=== PATIENT | male | born 1950 | race Caucasian/White ===

== ENCOUNTER 2020-02-04 14:02 | Emergency (ER) | payer OTHER ==
[2020-02-04 14:40] VITALS: TEMP 98.7; BMI 33.3
--- NOTE | 2020-02-04 14:47 | PDOC ---
History of Present Illness - General Chief Complaint: Difficulty seeing Stated Complaint: PROGRESSIVE VISION LOSS Time Seen by Provider: 02/04/20 14:46 - History of Present Illness Initial Comments: Pt is a 69yo M with PMH Afib on Eliquis, HTN, gastritis, hypothyroid, gout, anemia, hx of etoh abuse who presents with vision loss. Pt is a poor historian, telling different histories to myself and nurse. Pt states that he is here for loss of appetite, denies change in vision. Per Ene @ [facility], she noticed that over the past 5 days, patient has been saying he can't see, tripping over objects on the floor, misplacing objects, has poor hand-eye coordination. Nurse found a pair of glasses, and pt continues to report decreased vision. States that he had a visit with the deputy harbormaster last month. Per nurse's interview with patient, he broke his glasses and has had difficulty seeing without them and that current pair is an old prescription. Spoke with another employee at [employer], reports that pt has had difficulty seeing for at least the past two weeks. States that his medications have to be placed in his hand. 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 PMH: see above Meds: see chart Allergies: NKDA Social: reports drinking 1-2 beers/day, last drink yesterday Review of Systems CONSTITUTIONAL:denies fever, chills, generalized weakness HEENT:denies rhinorrhea, nasal congestion, sore throat CARDIOVASCULAR:denies chest pain, palpitations, lightheadedness RESPIRATORY:denies cough, shortness of breath, wheezing GASTROINTESTINAL: denies abdominal pain, nausea, vomiting, diarrhea, constipation, melena, hematochezia GENITOURINARY:denies dysuria, frequency, hematuria MUSCULOSKELETAL:denies myalgia, arthralgia HEMATOLOGIC/IMMUNOLOGIC:denies easy bleeding, easy bruising, denies bleeding from gums ENDOCRINE: denies unexplained weight gain, unexplained weight loss NEUROLOGIC:denies headache, loss of consciousness, focal weakness or paresthesias, bladder or bowel incontinence SKIN:denies rash, itching, pallor Physical Exam General: awake, alert, oriented, in no acute distress, well developed, well nourished Head: normocephalic, atraumatic Eyes: PERRL, anicteric sclera, conjunctiva clear; limited vision in right eye; vision loss in left eye ENT: hearing grossly normal, oropharynx clear without exudates, moist mucous membranes Neck: supple, normal ROM Lung: equal breath sounds b/l, CTA b/l, no crackles, wheezes; no distress, speaks full sentences Heart: RRR, normal S1, S2, no murmurs appreciated Abdomen: soft, non tender, normoactive bowel sounds, no guarding, rebound, masses Extremities: no edema, no erythema or tenderness, radial/DP/PT pulses 2+ and symmetric, no clubbing, cyanosis Neuro: Cranial nerves: Cranial nerves II through XII are intact Motor: The upper extremities are 5/5 in all muscle groups. The lower extremities are 5/5 in all muscle groups. No pronator drift. Sensation: Sensation is intact to light touch throughout. Cerebellar: unable to assess dysmetria due to vision loss, -dysdiadochokinesia Skin: warm, dry, no rashes or lesions noted, no petechiae appreciated MDM Pt is a 69yo M with PMH Afib on Eliquis, HTN, gastritis, hypothyroid, gout, anemia, hx of etoh abuse who presents with vision loss. DDx including but not limited to: cataracts, chronic vision loss, less likely GCA (no temporal TTP, chronic loss of vision) Workup: labs EKG - Atrial fibrillation, HR 78bpm, QRS 78ms, QTc 437ms, unchanged from previous (09/2019) Pt resting comfortably in bed, no complaints Will consult ophthalmology Spoke with Dr. Silva - recommended Head CT to evaluate for embolic strokes, outpatient follow up appointment tomorrow Likely discharge to [facility] with outpatient f/u with ophtho Pending head CT signed out to night team Past History - Medical History Allergies/Adverse Reactions: Allergies Allergy/AdvReac Type Severity Reaction Status Date / Time No Known Allergies Allergy Verified 02/04/20 14:39 Home Medications: Ambulatory Orders Allopurinol [Zyloprim -] 100 mg PO DAILY 09/27/19 Apixaban [Eliquis -] 5 mg PO BID 09/27/19 Ascorbic Acid [Vitamin C -] 1,000 mg PO DAILY 09/27/19 Cholecalciferol (Vitamin D3) [Vitamin D3] 50,000 unit PO MONTHLY 09/27/19 Folic Acid - 1 mg PO DAILY 09/27/19 Methimazole [Tapazole -] 10 mg PO DAILY 09/27/19 Metoprolol Succinate [Toprol XL -] 100 mg PO BID 09/27/19 Pantoprazole Sodium [Protonix] 40 mg PO DAILY 09/27/19 Thiamine Mononitrate [Vitamin B-1] 100 mg PO DAILY 09/27/19 Pantoprazole Sodium [Protonix -] 40 mg PO DAILY #0 tablet.ec 09/29/19 Cardiac Disorders: Yes (afib) COPD: No GI Disorders: Yes (Gastritis) HTN: Yes Psychiatric Problems: Yes (etoh abuse) Seizures: Yes (hypothyroid) - Psycho-Social/Smoking History Smoking History: Smoker current status UNK Have you smoked in the past 12 months: No Information on smoking cessation initiated: No - Substance Abuse Hx (Audit-C & DAST Scrn) How often the patient has a drink containing alcohol: Never Score: In Men: 4 or > Positive; In Women: 3 or > Positive: 0 Screen Result (Pos requires Nsg. Audit-10AR): Negative In the last yr the pt used illegal drug/Rx for NonMed reason: No Score: Yes response is considered Positive: 0 Screen Result (Positive result requires Nsg. DAST-10): Negative *Physical Exam - Vital Signs Last Vital Signs Temp Pulse Resp BP Pulse Ox 98.7 F 92 H 18 123/75 97 02/04/20 14:37 02/04/20 14:37 02/04/20 14:37 02/04/20 14:37 02/04/20 14:37 ED Treatment Course - LABORATORY CBC & Chemistry Diagram: 02/04/20 17:00 02/04/20 16:15 Discharge - Discharge Information Problems reviewed: Yes Clinical Impression/Diagnosis: Vision loss, bilateral Condition: Stable Disposition: HOME - Follow up/Referral Referrals: Ulises Silva MD [Staff Physician] - - Patient Discharge Instructions Patient Printed Discharge Instructions: Coping With Low Vision Additional Instructions: You came into the ER vision changes. In the ED, you were evaluated with blood work, electrocardiogram (EKG), and head CT. Your blood work indicated low platelet count. Your EKG the same as your previous one. Your head CT was normal. You do not appear to be an acute need for immediate hospitalization. You were advised to follow up with ophthalmology. You were given a number for Dr. Silva ([phone]). Call tomorrow to schedule an appointment. Come back to the ER immediately with any new or worsening concerns. Thank you for coming to the [facility] ER. We hope you feel better soon! - Post Discharge Activity
[2020-02-04 16:38] LABS: INR 1.32 (0.83-1.09); PROTHROMBIN TIME (PATIENT) 15.6 SEC (9.7-13.0)
[2020-02-04 16:40] LABS: ACTIVATED PTT 18.1 SECONDS (25.2-36.5)
[2020-02-04 17:01] LABS: ANION GAP 10 MMOL/L (8-16); CHLORIDE 114 mmol/L (98-107); CO2 23 mmol/L (21-32); CREATININE 1.1 mg/dL (0.55-1.3); GLUCOSE,RANDOM 95 mg/dL (74-106); POTASSIUM 4.2 mmol/L (3.5-5.1); SODIUM 144 mmol/L (136-145)
[2020-02-04 17:02] LABS: ALBUMIN 3.5 g/dl (3.4-5.0); ALK PHOS 104 U/L (45-117); BILIRUBIN,TOTAL 0.3 mg/dL (0.2-1); SGOT/AST 28 U/L (15-37); SGPT/ALT 20 U/L (13-61); TOT PROT 6.6 g/dl (6.4-8.2)
[2020-02-04 17:05] LABS: CALCIUM < 5.0 mg/dL (8.5-10.1)
--- NOTE | 2020-02-04 17:08 | PDOC ---
Attending Attestation - Resident Resident Name: Isela Rasheed - ED Attending Attestation I have performed the following: I have examined & evaluated the patient, The case was reviewed & discussed with the resident, I agree w/resident's findings & plan, Exceptions are as noted - HPI HPI: 02/04/20 17:08 69y M hx of afib on eliquis, htn, gastiritis hypethyroid, gout presents with vision lose. Pt is a poor historian, states he has trouble seeing. Per NH, he has had trouble seeing and misplacing things, as far as 2 weeks ago, per admin he was unable to see something held in front of him. Pt denies any acute complaints including fever/chills, neck pain, headache, cp, palpitations. - Physicial Exam PE: 02/10/20 18:01 exam: no distress card: rrr pulmL cta bl neuro: no vision on L eye, R eye vision to shadows - Medical Decision Making 02/10/20 18:01 vision loss appears subacute, will need optho fu will dw optho for further reval Discharge - Discharge Information Problems reviewed: Yes Clinical Impression/Diagnosis: Vision loss of right eye Condition: Stable Disposition: HOME - Admission No - Follow up/Referral Referrals: Ulises Silva MD [Staff Physician] - - Patient Discharge Instructions Patient Printed Discharge Instructions: Coping With Low Vision Additional Instructions: You came into the ER vision changes. In the ED, you were evaluated with blood work, electrocardiogram (EKG), and head CT. Your blood work indicated low platelet count. Your EKG the same as your previous one. Your head CT was normal. You do not appear to be an acute need for immediate hospitalization. You were advised to follow up with ophthalmology. You were given a number for Dr. Silva ([phone]). Call tomorrow to schedule an appointment. Come back to the ER immediately with any new or worsening concerns. Thank you for coming to the [facility] ER. We hope you feel better soon! - Post Discharge Activity
[2020-02-04 17:25] LABS: BASO % 0.8 % (0-2.0); EOS % 1.5 % (0-4.5); HEMATOCRIT 35.9 % (35.4-49); HEMOGLOBIN 12.1 GM/dL (11.7-16.9); MCHC 33.6 g/dl (32.0-35.9); MEAN CELL VOLUME 95.5 fl (80-96); MEAN PLT VOLUME 9.6 fl (7.5-11.1); MONO % 11.2 % (3.8-10.2); NEUT % 58.5 % (42.8-82.8); PLATELET COUNT 85 K/MM3 (134-434); RBC 3.76 M/mm3 (4.00-5.60); RDW 16.4 % (11.9-15.9); WHITE BLOOD COUNT 4.5 K/mm3 (4.0-10.0)
[2020-02-04 18:22] LABS: ERYTHROCYTE SEDIMENTATION RATE 44 mm/hr (0-20)
--- NOTE | 2020-02-04 19:15 | PDOC ---
*Physical Exam - Vital Signs Last Vital Signs Temp Pulse Resp BP Pulse Ox 98.7 F 92 H 18 123/75 97 02/04/20 14:37 02/04/20 14:37 02/04/20 14:37 02/04/20 14:37 02/04/20 14:37 ED Treatment Course - LABORATORY CBC & Chemistry Diagram: 02/04/20 17:00 02/04/20 16:15 - ADDITIONAL ORDERS Additional order review: Laboratory Results 02/04/20 02/04/20 02/04/20 17:00 16:15 16:15 PT with INR 15.60 H INR 1.32 H PTT (Actin FS) 18.1 L Sodium 144 Potassium 4.2 Chloride 114 H Carbon Dioxide 23 Anion Gap 10 BUN 19.0 H Creatinine 1.1 Est GFR (CKD-EPI)AfAm 78.41 Est GFR (CKD-EPI)NonAf 67.66 Random Glucose 95 Calcium 9.2 < 5.0 L* Total Bilirubin 0.3 AST 28 ALT 20 Alkaline Phosphatase 104 C-Reactive Protein < 0.3 Total Protein 6.6 Albumin 3.5 02/04/20 02/04/20 17:00 16:15 RBC 3.76 L Cancelled MCV 95.5 Cancelled MCHC 33.6 Cancelled RDW 16.4 H Cancelled MPV 9.6 Cancelled Neutrophils % 58.5 D Cancelled Lymphocytes % 28.0 D Cancelled Monocytes % 11.2 H D Cancelled Eosinophils % 1.5 D Cancelled Basophils % 0.8 Cancelled Medical Decision Making - Medical Decision Making 02/04/20 19:[address],if no acute intracranial pathology, d/c 02/04/20 19:42 EXAM: HEAD CT WITHOUT CONTRAST HISTORY: Vision loss COMPARISON: None. FINDINGS: No intra or extra-axial hemorrhage or collection. No evidence of acute infarct in a major vascular territory within the limitations of CT No mass lesion or midline shift. Normal morgan white matter differentiation. Mild to moderate cortical atrophy The ventricles are not enlarged and are symmetric and midline in position. The calvarium is intact Mild mucosal thickening in the maxillary sinuses. The remaining visualized paranasal sinuses and mastoid air cells are clear Discharge - Discharge Information Problems reviewed: Yes Clinical Impression/Diagnosis: Vision loss of right eye Condition: Stable Disposition: HOME - Follow up/Referral Referrals: Ulises Silva MD [Staff Physician] - - Patient Discharge Instructions Patient Printed Discharge Instructions: Coping With Low Vision Additional Instructions: You came into the ER vision changes. In the ED, you were evaluated with blood work, electrocardiogram (EKG), and head CT. Your blood work indicated low platelet count. Your EKG the same as your previous one. Your head CT was normal. You do not appear to be an acute need for immediate hospitalization. You were advised to follow up with ophthalmology. You were given a number for Dr. Silva ([phone]). Call tomorrow to schedule an appointment. Come back to the ER immediately with any new or worsening concerns. Thank you for coming to the [facility] ER. We hope you feel better soon! - Post Discharge Activity
[2020-02-04 21:05] VITALS: BP 166/94; PULSE 94
--- NOTE | 2020-02-05 11:16 | EKG ---
Test Reason : Blood Pressure : / mmHG Vent. Rate : 078 BPM Atrial Rate : 468 BPM P-R Int : 000 ms QRS Dur : 078 ms QT Int : 384 ms P-R-T Axes : 000 010 008 degrees QTc Int : 437 ms ATRIAL FIBRILLATION ABNORMAL ECG WHEN COMPARED WITH ECG OF 27-SEP-2019 16:57, T WAVE VARIATION Confirmed by LASHONDA ACUNA MD ([id number]) on 02/05/2020 11:16:23 AM Referred By: Confirmed By:LASHONDA ACUNA MD
== END 2020-02-04 21:05 | disposition home or self-care (01) ==
LOC: JER 14:02
DX: H53.133 Sudden visual loss, bilateral (principal)
CPT/HCPCS: 36415; 70450-TC; 80053; 82310; 85025; 85610; 85651; 85730; 86140; 93005; 93010; 99285-25

== ENCOUNTER 2020-02-10 11:05 | Emergency (ER) | payer OTHER ==
[2020-02-10 11:25] VITALS: BP 150/98; PULSE 89; TEMP 98.1; BMI 33.3
[2020-02-10] MEDS ORDERED: ACETAMINOPHEN 325 MG TABLET (FP) PO ONE (11:41)
[2020-02-10] MEDS ORDERED: DIPHTH,PERTUSS(ACELL),TET 0.5 ML DISP.SYRIN IM ONE ×2 (11:41→11:58)
[2020-02-10 14:35] LABS: BASO % 0.8 % (0-2.0); EOS % 1.8 % (0-4.5); HEMATOCRIT 39.6 % (35.4-49); HEMOGLOBIN 13.2 GM/dL (11.7-16.9); LYMPH % 26.1 % (8-40); MCH 32.6 pg (25.7-33.7); MCHC 33.4 g/dl (32.0-35.9); MEAN CELL VOLUME 97.5 fl (80-96); MEAN PLT VOLUME 9.8 fl (7.5-11.1); NEUT % 63.3 % (42.8-82.8); PLATELET COUNT 114 K/MM3 (134-434); RBC 4.06 M/mm3 (4.00-5.60); RDW 16.2 % (11.9-15.9); WHITE BLOOD COUNT 5.6 K/mm3 (4.0-10.0)
[2020-02-10 14:43] LABS: INR 1.32 (0.83-1.09); PROTHROMBIN TIME (PATIENT) 15.6 SEC (9.7-13.0)
[2020-02-10 14:46] LABS: ACTIVATED PTT 37.4 SECONDS (25.2-36.5)
[2020-02-10 14:52] LABS: ALBUMIN 3.9 g/dl (3.4-5.0); ALK PHOS 94 U/L (45-117); ANION GAP 13 MMOL/L (8-16); BILIRUBIN,TOTAL 0.4 mg/dL (0.2-1); BLOOD UREA NITROGEN 18.9 mg/dL (7-18); CALCIUM 9.5 mg/dL (8.5-10.1); CHLORIDE 113 mmol/L (98-107); CO2 16 mmol/L (21-32); CREATININE 0.8 mg/dL (0.55-1.3); POTASSIUM 4.4 mmol/L (3.5-5.1); SGOT/AST 27 U/L (15-37); SGPT/ALT 24 U/L (13-61); SODIUM 142 mmol/L (136-145); TOT PROT 7.4 g/dl (6.4-8.2)
[2020-02-10 14:57] LABS: GLUCOSE,RANDOM 72 mg/dL (74-106)
== END 2020-02-10 16:01 | disposition home or self-care (01) ==
LOC: JER 11:05
PROC: 3E0234Z Introduction of Serum, Toxoid and Vaccine into Muscle, Percutaneous Approach (ICD-10-PCS; principal; 2020-02-10)
DX: S41.112A Laceration without foreign body of left upper arm, initial encounter (principal); S80.11XA Contusion of right lower leg, initial encounter; S00.83XA Contusion of other part of head, initial encounter; F10.229 Alcohol dependence with intoxication, unspecified
CPT/HCPCS: 36415; 70450-TC; 72125-TC; 73590-TC-RT-FY; 80053; 80307; 82550; 84484; 85025; 85610; 85730; 90715; 93005; 93010; 99285-25